=== PATIENT | female | born 1955 | race Caucasian/White ===

== ENCOUNTER 2017-10-15 11:14 | Emergency (ER) | payer OTHER ==
[2017-10-15 11:32] VITALS: BP 156/117
== END 2017-10-15 12:04 ==
LOC: ED 11:45
DX: R11.2 Nausea with vomiting, unspecified (principal); R19.7 Diarrhea, unspecified; R10.13 Epigastric pain; Z90.710 Acquired absence of both cervix and uterus
CPT/HCPCS: 99281

== ENCOUNTER 2018-02-21 12:58 | Emergency (ER) | payer OTHER ==
[~2018-02-21] VITALS: Ht 177.8 cm; Wt 72.0 kg
[2018-02-21] MEDS ORDERED: LORazepam 2 MG/ML, 1ML ONE (13:50)
[2018-02-21] MEDS ORDERED: LORazepam 2 MG/ML, 1ML IVPush ONE (14:00)
[2018-02-21] MEDS ORDERED: SODIUM CHLORIDE 0.9% 1,000ML IVBOLUS ONE (14:00)
[2018-02-21 14:13] LABS: BASOPHILS # (AUTO) 0.05 x10^3/uL (0-0.1); BASOPHILS % (AUTO) 0 % (0-1); EOSINOPHILS # (AUTO) 0.18 x10^3/uL (0-0.4); EOSINOPHILS % (AUTO) 2 % (1-7); LYMPHOCYTES # (AUTO) 2.29 x10^3/uL (1-3.4); LYMPHOCYTES % (AUTO) 20 % (22-44); MD NO; MEAN CORPUSCULAR HEMOGLOBIN 29.3 pg (27.0-34.8); MEAN CORPUSCULAR HGB CONC 32.7 g/dL (32.4-35.8); MEAN CORPUSCULAR VOLUME 89.7 fL (80-100); MEAN PLATELET VOLUME 8.5 fL (7.4-10.4); MONOCYTES # (AUTO) 0.63 x10^3/uL (0.2-0.8); MONOCYTES % (AUTO) 6 % (2-9); NEUTROPHILS # (AUTO) 8.25 x10^3/uL (1.8-6.8); NEUTROPHILS % (AUTO) 72 % (42-75); PLATELET COUNT 369 x10^3/uL (130-400); RED BLOOD COUNT 5.79 x10^6/uL (3.82-5.3); RED CELL DISTRIBUTION WIDTH 14.7 % (9.6-15.2)
[2018-02-21 14:21] LABS: ALANINE AMINOTRANSFERASE 32 U/L (12-78); ALBUMIN 4.4 g/dL (3.4-5.0); ANION GAP 11 mmol/L (5-15); CALCIUM 10.2 mg/dL (8.5-10.1); CHLORIDE 110 mmol/L (98-107); CREATININE 0.99 mg/dL (0.55-1.02)
[2018-02-21 14:22] LABS: ALKALINE PHOSPHATASE 143 U/L (45-117); BILIRUBIN,TOTAL 1.2 mg/dL (0.2-1.0); TOTAL PROTEIN 8.3 g/dL (6.4-8.2)
[2018-02-21 14:56] LABS: MICROSCOPIC INDICATED
[2018-02-21 15:09] LABS: CULTURE INDICATED? YES
[2018-02-21] MEDS ORDERED: FOSFOMYCIN 3 GM PACKET PO ONE (16:00)
[2018-02-21 16:39] VITALS: BP 112/84
== END 2018-02-21 16:41 | disposition home or self-care (01) ==
LOC: ED 16:35
DX: R10.13 Epigastric pain (principal); N30.00 Acute cystitis without hematuria; J45.909 Unspecified asthma, uncomplicated; R11.2 Nausea with vomiting, unspecified
CPT/HCPCS: 36415; 80053; 81001; 83690; 85025; 87086; 96361; 96374; 99285; J2060; J7030

== ENCOUNTER 2018-03-17 16:35 | Emergency (ER) | payer OTHER ==
[~2018-03-17] VITALS: Ht 177.8 cm; Wt 73.0 kg
[2018-03-17] MEDS ORDERED: LORazepam 1MG TABLET PO ONE (17:30)
[2018-03-17 17:41] LABS: BASOPHILS # (AUTO) 0.04 x10^3/uL (0-0.1); BASOPHILS % (AUTO) 0 % (0-1); EOSINOPHILS # (AUTO) 0.02 x10^3/uL (0-0.4); EOSINOPHILS % (AUTO) 0 % (1-7); LYMPHOCYTES # (AUTO) 1.61 x10^3/uL (1-3.4); LYMPHOCYTES % (AUTO) 9 % (22-44); MD NO; MEAN CORPUSCULAR HEMOGLOBIN 29.3 pg (27.0-34.8); MEAN CORPUSCULAR HGB CONC 32.7 g/dL (32.4-35.8); MEAN CORPUSCULAR VOLUME 89.6 fL (80-100); MEAN PLATELET VOLUME 8.8 fL (7.4-10.4); MONOCYTES # (AUTO) 0.71 x10^3/uL (0.2-0.8); MONOCYTES % (AUTO) 4 % (2-9); NEUTROPHILS # (AUTO) 14.66 x10^3/uL (1.8-6.8); NEUTROPHILS % (AUTO) 86 % (42-75); PLATELET COUNT 388 x10^3/uL (130-400); RED CELL DISTRIBUTION WIDTH 13.9 % (9.6-15.2)
[2018-03-17 17:45] LABS: ALANINE AMINOTRANSFERASE 24 U/L (12-78); ALBUMIN 4.2 g/dL (3.4-5.0); ANION GAP 8 mmol/L (5-15); CALCIUM 9.5 mg/dL (8.5-10.1); CHLORIDE 111 mmol/L (98-107); CREATININE 0.88 mg/dL (0.55-1.02)
[2018-03-17] MEDS ORDERED: LORazepam 1MG TABLET ONE (17:47)
[2018-03-17 17:48] LABS: ALKALINE PHOSPHATASE 116 U/L (45-117); BILIRUBIN,TOTAL 0.5 mg/dL (0.2-1.0); TOTAL PROTEIN 7.8 g/dL (6.4-8.2)
[2018-03-17] MEDS ORDERED: DIAZEPAM 5 MG TABLET ONE (17:54)
[2018-03-17] MEDS ORDERED: DIAZEPAM 5 MG TABLET PO ONE (18:00)
[2018-03-17 18:03] LABS: TROPONIN I < 0.015 ng/mL (0.000-0.045)
[2018-03-17 18:12] LABS: MICROSCOPIC AUTO
[2018-03-17 18:16] LABS: CULTURE INDICATED? YES
[2018-03-17 18:21] VITALS: BP 143/88
== END 2018-03-17 18:25 | disposition left against medical advice (07) ==
LOC: ED 17:05
DX: N30.90 Cystitis, unspecified without hematuria (principal); J45.909 Unspecified asthma, uncomplicated
CPT/HCPCS: 36415; 71046; 80053; 81001; 84484; 85025; 87086; 93005; 99285

== ENCOUNTER 2018-03-19 10:58 | Emergency (ER) | payer OTHER ==
[~2018-03-19] VITALS: Ht 177.8 cm; Wt 73.6 kg
[2018-03-19] MEDS ORDERED: ONDANSETRON ODT 4 MG ONE ×2 (11:23→12:04)
[2018-03-19] MEDS ORDERED: ONDANSETRON ODT 4 MG PO ONE (11:30)
[2018-03-19 11:39] LABS: BASOPHILS # (AUTO) 0.06 x10^3/uL (0-0.1); BASOPHILS % (AUTO) 0 % (0-1); EOSINOPHILS # (AUTO) 0.02 x10^3/uL (0-0.4); EOSINOPHILS % (AUTO) 0 % (1-7); LYMPHOCYTES # (AUTO) 1.88 x10^3/uL (1-3.4); LYMPHOCYTES % (AUTO) 12 % (22-44); MD NO; MEAN CORPUSCULAR HEMOGLOBIN 28.9 pg (27.0-34.8); MEAN CORPUSCULAR HGB CONC 32.6 g/dL (32.4-35.8); MEAN CORPUSCULAR VOLUME 88.6 fL (80-100); MEAN PLATELET VOLUME 8.4 fL (7.4-10.4); MONOCYTES # (AUTO) 0.83 x10^3/uL (0.2-0.8); MONOCYTES % (AUTO) 5 % (2-9); NEUTROPHILS # (AUTO) 12.74 x10^3/uL (1.8-6.8); NEUTROPHILS % (AUTO) 82 % (42-75); PLATELET COUNT 480 x10^3/uL (130-400); RED BLOOD COUNT 6.26 x10^6/uL (3.82-5.3); RED CELL DISTRIBUTION WIDTH 13.6 % (9.6-15.2)
[2018-03-19 11:48] LABS: ALBUMIN 4.5 g/dL (3.4-5.0); ANION GAP 8 mmol/L (5-15); CALCIUM 10.1 mg/dL (8.5-10.1); CHLORIDE 108 mmol/L (98-107); CREATININE 1.05 mg/dL (0.55-1.02)
[2018-03-19] MEDS ORDERED: OXYcodone/APAP 5/325MG TABLET PO ONE (12:00)
[2018-03-19] MEDS ORDERED: PHENAZOPYRIDINE 200 MG TABLET PO ONE (12:00)
[2018-03-19] MEDS ORDERED: PHENAZOPYRIDINE 200 MG TABLET ONE (12:01)
[2018-03-19] MEDS ORDERED: OXYcodone/APAP 5/325MG TABLET ONE (12:01)
[2018-03-19 12:10] LABS: CULTURE INDICATED? YES; MICROSCOPIC INDICATED
[2018-03-19 13:00] VITALS: BP 136/81
== END 2018-03-19 13:02 | disposition home or self-care (01) ==
LOC: ED 11:14
DX: N30.00 Acute cystitis without hematuria (principal); E86.0 Dehydration; D72.829 Elevated white blood cell count, unspecified; J45.909 Unspecified asthma, uncomplicated; I10 Essential (primary) hypertension; F17.200 Nicotine dependence, unspecified, uncomplicated
CPT/HCPCS: 36415; 80048; 81001; 82040; 85025; 87086; 99284; Q0162

== ENCOUNTER 2018-03-20 16:13 | Emergency (ER) | payer OTHER ==
[~2018-03-20] VITALS: Ht 177.8 cm; Wt 72.5 kg
[2018-03-20 16:16] VITALS: BP 138/91
[2018-03-20 16:47] LABS: MICROSCOPIC INDICATED
[2018-03-20] MEDS ORDERED: KETOROLAC 30 MG/1 ML IVPush ONE (17:30)
[2018-03-20] MEDS ORDERED: SODIUM CHLORIDE FLUSH 10ML SYR IVF ONE (17:30)
[2018-03-20] MEDS ORDERED: SODIUM CHLORIDE 0.9% 1,000ML IV ONE (17:30)
[2018-03-20] MEDS ORDERED: ONDANSETRON 2MG/ML, 2ML ONE (17:36)
[2018-03-20] MEDS ORDERED: KETOROLAC 30 MG/1 ML ONE (17:36)
[2018-03-20] MEDS ORDERED: ONDANSETRON 2MG/ML, 2ML IVPush ONE (18:00)
[2018-03-20] MEDS ORDERED: CEFTRIAXONE PMX 1GM/50ML 50 ML IV ONE (18:00)
[2018-03-20] MEDS ORDERED: LORazepam 1MG TABLET PO ONE (18:30)
[2018-03-20 18:32] LABS: BASOPHILS # (AUTO) 0.04 x10^3/uL (0-0.1); BASOPHILS % (AUTO) 0 % (0-1); EOSINOPHILS # (AUTO) 0.01 x10^3/uL (0-0.4); EOSINOPHILS % (AUTO) 0 % (1-7); LYMPHOCYTES # (AUTO) 1.28 x10^3/uL (1-3.4); LYMPHOCYTES % (AUTO) 8 % (22-44); MD NO; MEAN CORPUSCULAR HEMOGLOBIN 28.9 pg (27.0-34.8); MEAN CORPUSCULAR VOLUME 87.6 fL (80-100); MEAN PLATELET VOLUME 8.4 fL (7.4-10.4); MONOCYTES # (AUTO) 0.99 x10^3/uL (0.2-0.8); MONOCYTES % (AUTO) 7 % (2-9); NEUTROPHILS # (AUTO) 12.97 x10^3/uL (1.8-6.8); NEUTROPHILS % (AUTO) 85 % (42-75); PLATELET COUNT 481 x10^3/uL (130-400); RED BLOOD COUNT 6.12 x10^6/uL (3.82-5.3); RED CELL DISTRIBUTION WIDTH 13.6 % (9.6-15.2)
[2018-03-20] MEDS ORDERED: LORazepam 1MG TABLET ONE (18:38)
[2018-03-20 18:41] LABS: ALBUMIN 4.5 g/dL (3.4-5.0); ANION GAP 11 mmol/L (5-15); CHLORIDE 109 mmol/L (98-107)
[2018-03-20 18:44] LABS: ALANINE AMINOTRANSFERASE 26 U/L (12-78); ALKALINE PHOSPHATASE 118 U/L (45-117); BILIRUBIN,TOTAL 0.8 mg/dL (0.2-1.0); CREATININE 1.01 mg/dL (0.55-1.02); TOTAL PROTEIN 8.3 g/dL (6.4-8.2)
== END 2018-03-20 19:30 | disposition left against medical advice (07) ==
LOC: ED 18:48
DX: N39.0 Urinary tract infection, site not specified (principal); Z88.6 Allergy status to analgesic agent; J45.909 Unspecified asthma, uncomplicated; I10 Essential (primary) hypertension
CPT/HCPCS: 36415; 71045; 80053; 81001; 85025; 99285

== ENCOUNTER 2019-04-25 20:45 | Inpatient (IN) | payer MEDICARE, OTHER ==
[~2019-04-25] VITALS: Ht 177.8 cm; Wt 83.0 kg
--- NOTE | 2019-04-25 21:25 | NUR ---
PIV ESTB C B/C X1 DRAWN. PHLEB AT BS FOR B/C #2.
[2019-04-25] MEDS ORDERED: ONDANSETRON 2MG/ML, 2ML IVPush ONE (21:30)
[2019-04-25] MEDS ORDERED: HYDROmorphone 1 MG/ML, 1ML INJ IV ONE (21:30)
[2019-04-25] MEDS ORDERED: HYDROmorphone 1 MG/ML, 1ML VIAL ONE (21:37)
[2019-04-25] MEDS ORDERED: ONDANSETRON 2MG/ML, 2ML ONE (21:38)
[2019-04-25 21:46] LABS: MEAN CORPUSCULAR HEMOGLOBIN 28.6 pg (27.0-34.8); MEAN CORPUSCULAR VOLUME 89.4 fL (80-100); MEAN PLATELET VOLUME 8.4 fL (7.4-10.4); PLATELET COUNT 483 x10^3/uL (130-400); RED BLOOD COUNT 5.94 x10^6/uL (3.82-5.3); RED CELL DISTRIBUTION WIDTH 15.6 % (9.6-15.2)
--- NOTE | 2019-04-25 21:53 | NUR ---
PT AMBULATOYR TO RESTROOM, UNSUCCESSFUL ATTEMPT AT CLEAN CATCH. MEDS PER JUL. PT TO CT VIA CART.
[2019-04-25 21:56] LABS: SALICYLATE LEVEL 5.7 mg/dL (2.8-20.0)
[2019-04-25 22:05] LABS: MD YES
[2019-04-25 22:08] LABS: <PLATELET ESTIMATE> INCREASED; <PLT MORPHOLOGY> NORMAL PLT MORPH; ANISOCYTOSIS 1+; BASOS#(MANUAL) 0.18 x10^3/uL (0-0.1); BASOS% (MANUAL) 1 % (0-1); LYMPHS% (MANUAL) 13 % (22-44); MONOS#(MANUAL) 0.53 x10^3/uL (0.3-2.7); MONOS% (MANUAL) 3 % (2-9); SEG#(MANUAL) 14.69 x10^3/uL (1.8-6.8); SEGS% (MANUAL) 83 % (42-75)
[2019-04-25 22:24] LABS: ALANINE AMINOTRANSFERASE 53 U/L (12-78); ALBUMIN 4.4 g/dL (3.4-5.0); ANION GAP 8 mmol/L (5-15); CALCIUM 10.3 mg/dL (8.5-10.1); CHLORIDE 105 mmol/L (98-107)
[2019-04-25 22:27] LABS: ALKALINE PHOSPHATASE 149 U/L (45-117); BILIRUBIN,TOTAL 0.9 mg/dL (0.2-1.0); TOTAL PROTEIN 8.9 g/dL (6.4-8.2)
--- NOTE | 2019-04-25 22:45 | NUR ---
PT STATES SHE HAS AN ALLERGY TO CONTRAST, WHEN SEEN AT [place] THIS AM SHE REFUSED THE SCAN TO R/O KIDNEY STONES. MD AWARE. D/C CTA & PLAN FOR ADMISSION C MRI. PT/ FAMILY UPDATED. PT TEARFUL, STATES SHE DOES NOT WANT TO STAY, AFTER SPEAKING AT GREAT LENGTHS C PT, SHE AGREES TO ADMISSION.
--- NOTE | 2019-04-25 23:00 | NUR ---
TP RN: pt to be admitted, has non-contacted insurance. Transfer request faxed to [facility] at this time.
--- NOTE | 2019-04-25 23:12 | NUR ---
PT STRAIGHT CATH FOR URINE, SMALL SAMPLE OBTAINED, WALKED TO LAB.
[2019-04-25 23:31] LABS: MICROSCOPIC INDICATED
[2019-04-25 23:35] LABS: CULTURE INDICATED? YES
[2019-04-25 23:36] LABS: AMPHETAMINE SCREEN, URINE Negative (Negative); BARBITURATE SCREEN, URINE Negative (Negative); BENZODIAZEPINE SCREEN, URINE Positive (Negative); CANNABINOID SCREEN, URINE Positive (Negative); COCAINE SCREEN, URINE Negative (Negative); METHADONE SCREEN, URINE Negative (Negative); OPIATE SCREEN, URINE Positive (Negative)
--- NOTE | 2019-04-26 | NUR ---
TOMMIE RN: [facility] has not contacted us to transfer pt
[2019-04-26] MEDS ORDERED: LORazepam 2 MG/ML, 1ML ONE (00:13)
[2019-04-26] MEDS ORDERED: LORazepam 2 MG/ML, 1ML IVPush ONE (00:30)
[2019-04-26] MEDS ORDERED: LIDOCAINE-MPF 1%, 5ML ONE (00:39)
--- NOTE | 2019-04-26 00:42 | NUR ---
LIDO PULLED AND GIVEN TO PA. PA AWARE LP IS SET UP AND READY.
--- NOTE | 2019-04-26 01:19 | NUR ---
LP COMPLETED AT THIS TIME. PT EDUCATED ON LAYING FLAT FOR ONE HOUR. PT MINIMALLY COMPLIANT. FRIEND AT BEDSIDE ASSISTING.
[2019-04-26 01:56] LABS: GLUCOSE, CSF 84 mg/dL (40-80); TOTAL PROTEIN,CSF 54 mg/dL (15-45)
--- NOTE | 2019-04-26 02:11 | NUR ---
ADMITTING MD AT .
[2019-04-26] MEDS: SODIUM CHLORIDE 0.9% 1,000 ML IV SCH ×6 (02:18→22:39)
[2019-04-26] MEDS ORDERED: hydrALAzine 20 MG/ML, 1ML IVPush PRN (02:30)
[2019-04-26] MEDS ORDERED: ONDANSETRON ODT 4 MG PO PRN (02:30)
[2019-04-26] MEDS ORDERED: ACETAMINOPHEN 325 MG TABLET PO PRN (02:30)
[2019-04-26] MEDS ORDERED: morphine SULFATE 10 MG/ML, 1ML IVPush PRN (02:30)
[2019-04-26] MEDS ORDERED: BISACODYL 10 MG SUPP PR PRN (02:30)
[2019-04-26] MEDS ORDERED: DOCUSATE 100 MG CAPSULE PO PRN (02:30)
[2019-04-26] MEDS ORDERED: OXYcodone IR 5MG TABLET PO PRN (02:30)
[2019-04-26] MEDS ORDERED: POLYETHYLENE GLYCOL 17 GM PACKET PO PRN (02:30)
[2019-04-26] MEDS ORDERED: GABA400C PO ×2 (02:50→02:53)
[2019-04-26] MEDS ORDERED: ESCI20TA PO (02:50)
[2019-04-26] MEDS ORDERED: BUSP15TA PO (02:50)
[2019-04-26] MEDS ORDERED: CETI10CA PO (02:50)
[2019-04-26] MEDS ORDERED: FLUT1BLS13 INH (02:50)
[2019-04-26] MEDS ORDERED: APIX2.5T PO (02:50)
[2019-04-26] MEDS ORDERED: CHOL500045 PO (02:50)
[2019-04-26] MEDS ORDERED: ESTR1TAB15 PO (02:50)
[2019-04-26] MEDS ORDERED: GABA800T5 PO (02:52)
[2019-04-26 02:57] LABS: HEMOGLOBIN A1C 5.3 % (4.2-6.3)
[2019-04-26 02:59] LABS: FREE T4 (FREE THYROXINE) 1.05 ng/dL (0.76-1.46)
[2019-04-26] MEDS ORDERED: RANI150T4 PO (03:05)
[2019-04-26] MEDS ORDERED: METR-90 PO (03:05)
[2019-04-26] MEDS ORDERED: LEVO100T5 PO (03:05)
[2019-04-26] MEDS ORDERED: VALA1000 PO (03:05)
[2019-04-26] MEDS ORDERED: LITH600C PO (03:05)
[2019-04-26] MEDS ORDERED: LINA145C PO (03:05)
[2019-04-26] MEDS ORDERED: PENT100C2 PO (03:05)
[2019-04-26] MEDS ORDERED: LIOT5TAB11 PO (03:05)
[2019-04-26] MEDS ORDERED: MELA3TAB15 PO (03:05)
[2019-04-26] MEDS ORDERED: GUAI600T31 PO (03:05)
[2019-04-26] MEDS ORDERED: LITH300C PO (03:05)
[2019-04-26] MEDS ORDERED: MONT10TA9 PO (03:05)
[2019-04-26 03:30] VITALS: BP 135/95
[2019-04-26] MEDS ORDERED: AZITHROMYCIN 500 MG in SODIUM CHLORIDE 0.9% 250 ML IV ONE (04:00)
[2019-04-26] MEDS ORDERED: CEFTRIAXONE PMX 2GM/50ML 50 ML IV SCH (04:00)
[2019-04-26 04:07] LABS: MEAN CORPUSCULAR HEMOGLOBIN 28.2 pg (27.0-34.8); MEAN CORPUSCULAR VOLUME 88.1 fL (80-100); MEAN PLATELET VOLUME 8.1 fL (7.4-10.4); PLATELET COUNT 527 x10^3/uL (130-400); RED BLOOD COUNT 5.84 x10^6/uL (3.82-5.3); RED CELL DISTRIBUTION WIDTH 15.3 % (9.6-15.2)
[2019-04-26 04:23] LABS: ALANINE AMINOTRANSFERASE 53 U/L (12-78); ALBUMIN 4.2 g/dL (3.4-5.0); ALKALINE PHOSPHATASE 146 U/L (45-117); ANION GAP 7 mmol/L (5-15); BILIRUBIN,TOTAL 0.9 mg/dL (0.2-1.0); CALCIUM 9.8 mg/dL (8.5-10.1); CHLORIDE 108 mmol/L (98-107); CHOL/HDL RATIO 5.6; CHOLESTEROL, TOTAL 231 mg/dL (140-239); HDL CHOL % 18 % (28-40); HDL CHOLESTEROL (DIRECT) 41 mg/dL (40-60); LDL CHOLESTEROL,CALCULATED 153 mg/dL (54-169); LDL/HDL RATIO 3.7 (0.5-3.0); TOTAL PROTEIN 8.6 g/dL (6.4-8.2); TRIGLYCERIDES 187 mg/dL (50-200); VLDL CHOLESTEROL 37 mg/dL (0-25)
[2019-04-26 04:36] LABS: BASOPHILS # (AUTO) 0.09 x10^3/uL (0-0.1); BASOPHILS % (AUTO) 1 % (0-1); EOSINOPHILS # (AUTO) 0.11 x10^3/uL (0-0.4); EOSINOPHILS % (AUTO) 1 % (1-7); LYMPHOCYTES # (AUTO) 2.57 x10^3/uL (1-3.4); LYMPHOCYTES % (AUTO) 14 % (22-44); MD SCAN; MONOCYTES # (AUTO) 1.17 x10^3/uL (0.2-0.8); MONOCYTES % (AUTO) 6 % (2-9); NEUTROPHILS # (AUTO) 15.03 x10^3/uL (1.8-6.8); NEUTROPHILS % (AUTO) 79 % (42-75)
[2019-04-26] MEDS ORDERED: ALBUTEROL SULFATE 2.5 MG/3 ML NPPB SCH (06:00)
[2019-04-26] MEDS: BUDESONIDE 0.5 MG/2 ML INHA INH SCH ×2 (07:20→21:00)
[2019-04-26] MEDS ORDERED: LEVOTHYROXINE 100 MCG TABLET PO SCH (07:30)
[2019-04-26] MEDS ORDERED: HALOPERIDOL 5 MG/ML IM PRN (08:30)
[2019-04-26] MEDS: BUSPIRONE 5 MG TABLET PO SCH ×3 (08:40→20:47)
[2019-04-26] MEDS: APIXABAN 2.5 MG TABLET PO SCH ×2 (08:41→20:47)
[2019-04-26] MEDS: GABAPENTIN 400 MG CAPSULE PO SCH ×2 (08:41→20:48)
[2019-04-26] MEDS: LITHIUM CARBONATE 300 MG CAPSULE PO SCH ×2 (08:41→20:48)
[2019-04-26] MEDS: ESCITALOPRAM 10MG TABLET PO SCH (08:41)
[2019-04-26] MEDS: CHOLECALCIFEROL 5,000u TAB PO SCH (08:42)
[2019-04-26] MEDS: VALACYCLOVIR 500MG TABLET PO SCH ×3 (08:50→20:49)
[2019-04-26] MEDS: LIOTHYRONINE 5 MCG TABLET PO SCH ×2 (08:54→20:48)
[2019-04-26] MEDS ORDERED: [UNRECOGNIZED DRUG - OTHER] INH SCH (09:00)
[2019-04-26] MEDS ORDERED: FLUTICASONE PROPION INH SCH (09:00)
[2019-04-26] MEDS: TEMPLATE NON-FORMULARY MED. (Linaclotide** (Linzess**) 145 MCG) PO SCH ×2 (09:00→20:49)
[2019-04-26] MEDS: TEMPLATE NON-FORMULARY MED. (Pentosan Polysulfate Sodium (Elmiron) 100 MG) PO SCH ×3 (09:00→20:49)
[2019-04-26] MEDS ORDERED: CETIRIZINE 10 MG TABLET PO SCH (09:00)
[2019-04-26] MEDS ORDERED: FAMOTIDINE 20 MG TABLET PO SCH (09:00)
[2019-04-26] MEDS ORDERED: SALMETEROL INH SCH (09:00)
[2019-04-26] MEDS: PIPERACILLIN/TAZO/PMX 4.5GM 100 ML IV SCH ×3 (09:42→20:47)
[2019-04-26] MEDS ORDERED: GABAPENTIN 400 MG CAPSULE PO SCH (11:30)
[2019-04-26 12:04] VITALS: BP 144/84
[2019-04-26 12:30] VITALS: BP 148/86
[2019-04-26] MEDS ORDERED: ENOXAPARIN 40 MG/0.4 ML SQ SCH (13:00)
[2019-04-26 14:59] LABS: CULTURE INDICATED? YES; MICROSCOPIC INDICATED
[2019-04-26] MEDS: LINEZOLID PMX 600MG/300ML 300 ML IV SCH (17:14)
[2019-04-26 19:56] VITALS: BP 125/81
[2019-04-26] MEDS: MELATONIN 3 MG TABLET PO SCH (20:47)
[2019-04-26] MEDS: MONTELUKAST 10 MG TABLET PO SCH (20:48)
[2019-04-26] MEDS: FAMOTIDINE 20 MG TABLET PO SCH (20:49)
[2019-04-26] MEDS ORDERED: TEMPLATE NON-FORMULARY MED. (Ranitidine Hcl** 150 MG) PO SCH (21:00)
[2019-04-26] MEDS: ONDANSETRON 2MG/ML, 2ML IVPush PRN (21:17)
[2019-04-27 00:40] VITALS: BP 145/81
[2019-04-27] MEDS: PIPERACILLIN/TAZO/PMX 4.5GM 100 ML IV SCH ×4 (02:26→22:32)
[2019-04-27] MEDS: LINEZOLID PMX 600MG/300ML 300 ML IV SCH (04:49)
[2019-04-27] MEDS: SODIUM CHLORIDE 0.9% 1,000 ML IV SCH (04:49)
[2019-04-27] MEDS: ALBUTEROL SULFATE 2.5 MG/3 ML NPPB PRN ×2 (05:22→11:09)
[2019-04-27 05:23] LABS: ANION GAP 4 mmol/L (5-15); CALCIUM 8.1 mg/dL (8.5-10.1); CHLORIDE 114 mmol/L (98-107)
[2019-04-27 05:26] LABS: ALANINE AMINOTRANSFERASE 36 U/L (12-78); ALKALINE PHOSPHATASE 93 U/L (45-117); BILIRUBIN,TOTAL 1.3 mg/dL (0.2-1.0); CREATININE 0.99 mg/dL (0.55-1.02); TOTAL PROTEIN 5.9 g/dL (6.4-8.2)
[2019-04-27 05:30] LABS: BASOPHILS # (AUTO) 0.09 x10^3/uL (0-0.1); BASOPHILS % (AUTO) 1 % (0-1); EOSINOPHILS # (AUTO) 0.42 x10^3/uL (0-0.4); EOSINOPHILS % (AUTO) 4 % (1-7); LYMPHOCYTES # (AUTO) 2.05 x10^3/uL (1-3.4); LYMPHOCYTES % (AUTO) 19 % (22-44); MD NO; MEAN CORPUSCULAR HEMOGLOBIN 28.7 pg (27.0-34.8); MEAN CORPUSCULAR HGB CONC 31.7 g/dL (32.4-35.8); MEAN CORPUSCULAR VOLUME 90.5 fL (80-100); MONOCYTES % (AUTO) 7 % (2-9); NEUTROPHILS # (AUTO) 7.73 x10^3/uL (1.8-6.8); NEUTROPHILS % (AUTO) 70 % (42-75); PLATELET COUNT 334 x10^3/uL (130-400); RED BLOOD COUNT 4.44 x10^6/uL (3.82-5.3); RED CELL DISTRIBUTION WIDTH 15.8 % (9.6-15.2)
[2019-04-27 06:59] VITALS: BP 142/87
[2019-04-27] MEDS ORDERED: LEVOTHYROXINE 100 MCG TABLET PO SCH (07:30)
[2019-04-27] MEDS: ESCITALOPRAM 10MG TABLET PO SCH (08:25)
[2019-04-27] MEDS: LITHIUM CARBONATE 300 MG CAPSULE PO SCH ×2 (08:26→20:46)
[2019-04-27] MEDS: APIXABAN 2.5 MG TABLET PO SCH ×2 (08:26→20:46)
[2019-04-27] MEDS: VALACYCLOVIR 500MG TABLET PO SCH ×3 (08:26→20:49)
[2019-04-27] MEDS: GABAPENTIN 400 MG CAPSULE PO SCH ×2 (08:26→20:47)
[2019-04-27] MEDS: LIOTHYRONINE 5 MCG TABLET PO SCH ×2 (08:26→20:46)
[2019-04-27] MEDS: FAMOTIDINE 20 MG TABLET PO SCH ×2 (08:26→20:48)
[2019-04-27] MEDS: BUSPIRONE 5 MG TABLET PO SCH ×3 (08:27→20:46)
[2019-04-27] MEDS: TEMPLATE NON-FORMULARY MED. (Linaclotide** (Linzess**) 145 MCG) PO SCH ×2 (09:00→20:43)
[2019-04-27] MEDS: BUDESONIDE 0.5 MG/2 ML INHA INH SCH ×2 (09:00→19:48)
[2019-04-27] MEDS: CHOLECALCIFEROL 5,000u TAB PO SCH (09:00)
[2019-04-27] MEDS: TEMPLATE NON-FORMULARY MED. (Pentosan Polysulfate Sodium (Elmiron) 100 MG) PO SCH ×3 (09:00→20:43)
[2019-04-27] MEDS: PHENAZOPYRIDINE 100 MG TABLET PO PRN ×2 (10:14→15:49)
[2019-04-27] MEDS ORDERED: LORA-446 PO (13:20)
[2019-04-27 13:59] VITALS: BP 159/101
[2019-04-27] MEDS: LORazepam 1MG TABLET PO PRN (14:31)
[2019-04-27] MEDS: ALBUTEROL SULFATE 2.5 MG/3 ML NPPB SCH ×2 (15:00→19:48)
[2019-04-27] MEDS: POTASSIUM CHLORIDE 20 MEQ TAB.ER.PRT PO SCH (15:49)
[2019-04-27 19:16] VITALS: BP 157/94
[2019-04-27] MEDS: MELATONIN 3 MG TABLET PO SCH (20:47)
[2019-04-27] MEDS: MONTELUKAST 10 MG TABLET PO SCH (20:48)
[2019-04-27] MEDS: ONDANSETRON ODT 4 MG PO PRN (20:57)
[2019-04-28 01:35] VITALS: BP 132/80
[2019-04-28] MEDS: ALBUTEROL SULFATE 2.5 MG/3 ML NPPB SCH ×4 (03:00→19:32)
[2019-04-28] MEDS: SODIUM CHLORIDE 0.9% 1,000 ML IV SCH ×2 (03:28→20:28)
[2019-04-28] MEDS: PIPERACILLIN/TAZO/PMX 4.5GM 100 ML IV SCH (03:30)
[2019-04-28] MEDS: ONDANSETRON ODT 4 MG PO PRN ×2 (05:35→22:08)
[2019-04-28] MEDS: LEVOTHYROXINE 137 MCG TABLET PO SCH (05:35)
[2019-04-28 05:38] LABS: BASOPHILS % (AUTO) 1 % (0-1); EOSINOPHILS # (AUTO) 0.55 x10^3/uL (0-0.4); EOSINOPHILS % (AUTO) 6 % (1-7); LYMPHOCYTES # (AUTO) 2.44 x10^3/uL (1-3.4); LYMPHOCYTES % (AUTO) 26 % (22-44); MD NO; MEAN CORPUSCULAR HEMOGLOBIN 28.8 pg (27.0-34.8); MEAN CORPUSCULAR HGB CONC 31.8 g/dL (32.4-35.8); MEAN CORPUSCULAR VOLUME 90.4 fL (80-100); MEAN PLATELET VOLUME 7.8 fL (7.4-10.4); MONOCYTES # (AUTO) 0.82 x10^3/uL (0.2-0.8); MONOCYTES % (AUTO) 9 % (2-9); NEUTROPHILS # (AUTO) 5.38 x10^3/uL (1.8-6.8); NEUTROPHILS % (AUTO) 58 % (42-75); PLATELET COUNT 370 x10^3/uL (130-400); RED BLOOD COUNT 4.74 x10^6/uL (3.82-5.3); RED CELL DISTRIBUTION WIDTH 15.9 % (9.6-15.2)
[2019-04-28 05:50] LABS: CHLORIDE 114 mmol/L (98-107)
[2019-04-28 05:59] LABS: ALANINE AMINOTRANSFERASE 40 U/L (12-78); ALBUMIN 3.4 g/dL (3.4-5.0); ALKALINE PHOSPHATASE 98 U/L (45-117); ANION GAP 3 mmol/L (5-15); BILIRUBIN,TOTAL 1.1 mg/dL (0.2-1.0); CALCIUM 8.8 mg/dL (8.5-10.1); CREATININE 0.94 mg/dL (0.55-1.02)
[2019-04-28 06:44] VITALS: BP 168/98
[2019-04-28] MEDS: BUDESONIDE 0.5 MG/2 ML INHA INH SCH ×2 (07:00→19:32)
[2019-04-28] MEDS: TEMPLATE NON-FORMULARY MED. (Linaclotide** (Linzess**) 145 MCG) PO SCH ×2 (08:01→21:00)
[2019-04-28] MEDS: TEMPLATE NON-FORMULARY MED. (Pentosan Polysulfate Sodium (Elmiron) 100 MG) PO SCH ×3 (08:01→21:00)
[2019-04-28] MEDS: POTASSIUM CHLORIDE 20 MEQ TAB.ER.PRT PO SCH ×2 (08:11→09:00)
[2019-04-28] MEDS: APIXABAN 2.5 MG TABLET PO SCH ×2 (08:12→22:09)
[2019-04-28] MEDS: BUSPIRONE 5 MG TABLET PO SCH ×3 (08:12→22:10)
[2019-04-28] MEDS: LIOTHYRONINE 5 MCG TABLET PO SCH ×2 (08:13→21:00)
[2019-04-28] MEDS: PHENAZOPYRIDINE 100 MG TABLET PO PRN (08:17)
[2019-04-28] MEDS ORDERED: CEFTRIAXONE PMX 1GM/50ML 50 ML IV SCH (09:00)
[2019-04-28] MEDS: ONDANSETRON 2MG/ML, 2ML IVPush PRN ×2 (09:43→15:46)
[2019-04-28] MEDS: FAMOTIDINE 20 MG TABLET PO SCH ×2 (09:45→22:09)
[2019-04-28] MEDS: ESCITALOPRAM 10MG TABLET PO SCH (09:45)
[2019-04-28] MEDS: GABAPENTIN 400 MG CAPSULE PO SCH ×2 (09:45→22:10)
[2019-04-28] MEDS: LITHIUM CARBONATE 300 MG CAPSULE PO SCH ×2 (09:45→22:09)
[2019-04-28] MEDS: VALACYCLOVIR 500MG TABLET PO SCH ×3 (09:45→22:17)
[2019-04-28] MEDS: CHOLECALCIFEROL 5,000u TAB PO SCH (09:46)
[2019-04-28] MEDS: LORazepam 1MG TABLET PO PRN (09:56)
[2019-04-28] MEDS: OXYcodone/APAP 5/325MG TABLET PO PRN ×3 (11:10→23:26)
[2019-04-28] MEDS ORDERED: OMNIPAQUE 350 MG/ML, 100ML BOTTLE ONE (11:51)
[2019-04-28 13:32] VITALS: BP 133/77
[2019-04-28] MEDS ORDERED: PHARMACY INSTRUCTION MC PRN (14:00)
[2019-04-28] MEDS ORDERED: INSTRUCTION SEE COMMENTS XX PRN (14:00)
[2019-04-28 19:52] VITALS: BP 169/96
[2019-04-28] MEDS: MONTELUKAST 10 MG TABLET PO SCH (22:09)
[2019-04-28] MEDS: MELATONIN 3 MG TABLET PO SCH (22:10)
[2019-04-29 03:40] VITALS: BP 157/95
[2019-04-29] MEDS: LEVOTHYROXINE 137 MCG TABLET PO SCH (06:21)
[2019-04-29] MEDS: ONDANSETRON 2MG/ML, 2ML IVPush PRN ×2 (06:24→21:08)
[2019-04-29 08:04] VITALS: BP 159/92
[2019-04-29] MEDS: TEMPLATE NON-FORMULARY MED. (Linaclotide** (Linzess**) 145 MCG) PO SCH ×2 (09:00→21:00)
[2019-04-29] MEDS: TEMPLATE NON-FORMULARY MED. (Pentosan Polysulfate Sodium (Elmiron) 100 MG) PO SCH ×3 (09:00→21:00)
[2019-04-29] MEDS: BUDESONIDE 0.5 MG/2 ML INHA INH SCH ×2 (09:00→20:21)
[2019-04-29] MEDS: SODIUM CHLORIDE 0.9% 1,000 ML IV SCH ×2 (09:23→12:21)
[2019-04-29] MEDS: APIXABAN 2.5 MG TABLET PO SCH ×2 (09:24→20:59)
[2019-04-29] MEDS: PHENAZOPYRIDINE 100 MG TABLET PO PRN ×2 (09:24→17:05)
[2019-04-29] MEDS: BUSPIRONE 5 MG TABLET PO SCH ×3 (09:24→21:01)
[2019-04-29] MEDS: VALACYCLOVIR 500MG TABLET PO SCH ×3 (09:24→20:59)
[2019-04-29] MEDS: LIOTHYRONINE 5 MCG TABLET PO SCH ×2 (09:24→21:01)
[2019-04-29] MEDS: LITHIUM CARBONATE 300 MG CAPSULE PO SCH ×2 (09:25→21:01)
[2019-04-29] MEDS: CHOLECALCIFEROL 5,000u TAB PO SCH (09:25)
[2019-04-29] MEDS: CEFDINIR 300 MG CAPSULE PO SCH ×2 (09:25→21:00)
[2019-04-29] MEDS: GABAPENTIN 400 MG CAPSULE PO SCH ×2 (09:25→21:02)
[2019-04-29] MEDS: POTASSIUM CHLORIDE 20 MEQ TAB.ER.PRT PO SCH (09:25)
[2019-04-29] MEDS: ESCITALOPRAM 10MG TABLET PO SCH (09:25)
[2019-04-29] MEDS: FAMOTIDINE 20 MG TABLET PO SCH ×2 (09:26→20:59)
[2019-04-29] MEDS ORDERED: DIPHENHYDRAMINE 25 MG CAPSULE PO PRN (09:30)
[2019-04-29] MEDS: OXYcodone/APAP 5/325MG TABLET PO PRN ×2 (12:23→23:22)
[2019-04-29 14:38] VITALS: BP 156/93
[2019-04-29] MEDS: ALBUTEROL SULFATE 2.5 MG/3 ML NPPB PRN (15:45)
[2019-04-29 19:33] VITALS: BP 157/90
[2019-04-29] MEDS: MONTELUKAST 10 MG TABLET PO SCH (20:59)
[2019-04-29] MEDS: MELATONIN 3 MG TABLET PO SCH (20:59)
[2019-04-30 05:51] LABS: BASOPHILS % (AUTO) 1 % (0-1); EOSINOPHILS # (AUTO) 0.57 x10^3/uL (0-0.4); EOSINOPHILS % (AUTO) 6 % (1-7); LYMPHOCYTES # (AUTO) 2.16 x10^3/uL (1-3.4); LYMPHOCYTES % (AUTO) 24 % (22-44); MD NO; MEAN CORPUSCULAR HEMOGLOBIN 28.7 pg (27.0-34.8); MEAN CORPUSCULAR HGB CONC 32.3 g/dL (32.4-35.8); MEAN CORPUSCULAR VOLUME 88.8 fL (80-100); MONOCYTES # (AUTO) 0.66 x10^3/uL (0.2-0.8); MONOCYTES % (AUTO) 7 % (2-9); NEUTROPHILS # (AUTO) 5.53 x10^3/uL (1.8-6.8); NEUTROPHILS % (AUTO) 61 % (42-75); PLATELET COUNT 372 x10^3/uL (130-400); RED BLOOD COUNT 4.63 x10^6/uL (3.82-5.3); RED CELL DISTRIBUTION WIDTH 15.4 % (9.6-15.2)
[2019-04-30 05:58] LABS: ALBUMIN 3.5 g/dL (3.4-5.0); ANION GAP 2 mmol/L (5-15); CALCIUM 9.4 mg/dL (8.5-10.1); CHLORIDE 111 mmol/L (98-107)
[2019-04-30 06:04] LABS: ALANINE AMINOTRANSFERASE 43 U/L (12-78); ALKALINE PHOSPHATASE 85 U/L (45-117); BILIRUBIN,TOTAL 0.7 mg/dL (0.2-1.0); CREATININE 0.85 mg/dL (0.55-1.02); TOTAL PROTEIN 6.9 g/dL (6.4-8.2)
[2019-04-30] MEDS: LEVOTHYROXINE 137 MCG TABLET PO SCH (06:04)
[2019-04-30 07:42] VITALS: BP 149/80
[2019-04-30] MEDS: TEMPLATE NON-FORMULARY MED. (Pentosan Polysulfate Sodium (Elmiron) 100 MG) PO SCH ×3 (09:00→20:34)
[2019-04-30] MEDS: TEMPLATE NON-FORMULARY MED. (Linaclotide** (Linzess**) 145 MCG) PO SCH ×2 (09:00→20:34)
[2019-04-30] MEDS: BUDESONIDE 0.5 MG/2 ML INHA INH SCH ×2 (09:00→19:31)
[2019-04-30] MEDS: POTASSIUM CHLORIDE 20 MEQ TAB.ER.PRT PO SCH (09:29)
[2019-04-30] MEDS: FAMOTIDINE 20 MG TABLET PO SCH ×2 (09:30→20:33)
[2019-04-30] MEDS: CHOLECALCIFEROL 5,000u TAB PO SCH (09:30)
[2019-04-30] MEDS: GABAPENTIN 400 MG CAPSULE PO SCH ×2 (09:30→20:33)
[2019-04-30] MEDS: LIOTHYRONINE 5 MCG TABLET PO SCH ×2 (09:30→23:04)
[2019-04-30] MEDS: ESCITALOPRAM 10MG TABLET PO SCH (09:31)
[2019-04-30] MEDS: APIXABAN 2.5 MG TABLET PO SCH ×2 (09:32→20:33)
[2019-04-30] MEDS: LITHIUM CARBONATE 300 MG CAPSULE PO SCH ×2 (09:32→20:33)
[2019-04-30] MEDS: VALACYCLOVIR 500MG TABLET PO SCH ×3 (09:32→20:33)
[2019-04-30] MEDS: CEFDINIR 300 MG CAPSULE PO SCH ×2 (09:32→20:33)
[2019-04-30] MEDS: BUSPIRONE 5 MG TABLET PO SCH ×3 (09:33→20:32)
[2019-04-30] MEDS ORDERED: PHENAZOPYRIDINE 200 MG TABLET ONE (09:49)
[2019-04-30] MEDS: ONDANSETRON ODT 4 MG PO PRN ×2 (09:54→18:48)
[2019-04-30] MEDS: PHENAZOPYRIDINE 100 MG TABLET PO PRN (09:55)
[2019-04-30] MEDS: SODIUM CHLORIDE 0.9% 1,000 ML IV SCH (09:57)
[2019-04-30] MEDS: OXYcodone/APAP 5/325MG TABLET PO PRN ×2 (10:57→22:44)
[2019-04-30 12:31] VITALS: BP 158/87
[2019-04-30 20:00] VITALS: BP 140/77
[2019-04-30] MEDS: MELATONIN 3 MG TABLET PO SCH (20:33)
[2019-04-30] MEDS: MONTELUKAST 10 MG TABLET PO SCH (20:48)
[2019-05-01 01:51] VITALS: BP 117/79
[2019-05-01] MEDS: LEVOTHYROXINE 137 MCG TABLET PO SCH (06:12)
[2019-05-01] MEDS: SODIUM CHLORIDE 0.9% 1,000 ML IV SCH (06:12)
[2019-05-01 07:20] VITALS: BP 138/75
[2019-05-01] MEDS: TEMPLATE NON-FORMULARY MED. (Linaclotide** (Linzess**) 145 MCG) PO SCH ×2 (07:22→20:11)
[2019-05-01] MEDS: TEMPLATE NON-FORMULARY MED. (Pentosan Polysulfate Sodium (Elmiron) 100 MG) PO SCH ×3 (07:22→20:11)
[2019-05-01] MEDS: BUDESONIDE 0.5 MG/2 ML INHA INH SCH ×2 (09:00→21:00)
[2019-05-01] MEDS: CHOLECALCIFEROL 5,000u TAB PO SCH (09:41)
[2019-05-01] MEDS: APIXABAN 2.5 MG TABLET PO SCH ×2 (09:41→20:19)
[2019-05-01] MEDS: BUSPIRONE 5 MG TABLET PO SCH ×3 (09:41→20:18)
[2019-05-01] MEDS: LIOTHYRONINE 5 MCG TABLET PO SCH ×2 (09:41→19:58)
[2019-05-01] MEDS: FAMOTIDINE 20 MG TABLET PO SCH ×2 (09:41→20:19)
[2019-05-01] MEDS: CEFDINIR 300 MG CAPSULE PO SCH ×2 (09:41→20:18)
[2019-05-01] MEDS: GABAPENTIN 400 MG CAPSULE PO SCH ×2 (09:41→20:19)
[2019-05-01] MEDS: POTASSIUM CHLORIDE 20 MEQ TAB.ER.PRT PO SCH (09:42)
[2019-05-01] MEDS: VALACYCLOVIR 500MG TABLET PO SCH ×3 (09:42→20:19)
[2019-05-01] MEDS: LITHIUM CARBONATE 300 MG CAPSULE PO SCH ×2 (09:42→20:19)
[2019-05-01] MEDS: ESCITALOPRAM 10MG TABLET PO SCH (09:42)
[2019-05-01 12:21] VITALS: BP 134/85
[2019-05-01] MEDS: ALBUTEROL SULFATE 2.5 MG/3 ML NPPB PRN (15:54)
[2019-05-01 18:31] VITALS: BP 127/82
[2019-05-01] MEDS: MELATONIN 3 MG TABLET PO SCH (20:18)
[2019-05-01] MEDS: MONTELUKAST 10 MG TABLET PO SCH (20:18)
[2019-05-01] MEDS: ONDANSETRON 2MG/ML, 2ML IVPush PRN (20:18)
[2019-05-01] MEDS: PHENAZOPYRIDINE 100 MG TABLET PO PRN (20:19)
[2019-05-01] MEDS: OXYcodone/APAP 5/325MG TABLET PO PRN (22:19)
[2019-05-02] MEDS: SODIUM CHLORIDE 0.9% 1,000 ML IV SCH
[2019-05-02 02:02] VITALS: BP 122/78
[2019-05-02] MEDS: LORazepam 1MG TABLET PO PRN (02:30)
[2019-05-02] MEDS: LEVOTHYROXINE 137 MCG TABLET PO SCH (06:11)
[2019-05-02 06:38] VITALS: BP 134/77
[2019-05-02] MEDS: BUDESONIDE 0.5 MG/2 ML INHA INH SCH (07:14)
[2019-05-02] MEDS: TEMPLATE NON-FORMULARY MED. (Linaclotide** (Linzess**) 145 MCG) PO SCH (09:00)
[2019-05-02] MEDS: TEMPLATE NON-FORMULARY MED. (Pentosan Polysulfate Sodium (Elmiron) 100 MG) PO SCH (09:00)
[2019-05-02] MEDS: BUSPIRONE 5 MG TABLET PO SCH (09:22)
[2019-05-02] MEDS: ESCITALOPRAM 10MG TABLET PO SCH (09:22)
[2019-05-02] MEDS: GABAPENTIN 400 MG CAPSULE PO SCH (09:22)
[2019-05-02] MEDS: POTASSIUM CHLORIDE 20 MEQ TAB.ER.PRT PO SCH (09:22)
[2019-05-02] MEDS: VALACYCLOVIR 500MG TABLET PO SCH (09:23)
[2019-05-02] MEDS: FAMOTIDINE 20 MG TABLET PO SCH (09:23)
[2019-05-02] MEDS: LITHIUM CARBONATE 300 MG CAPSULE PO SCH (09:23)
[2019-05-02] MEDS: CEFDINIR 300 MG CAPSULE PO SCH (09:23)
[2019-05-02] MEDS: LIOTHYRONINE 5 MCG TABLET PO SCH (09:23)
[2019-05-02] MEDS: APIXABAN 2.5 MG TABLET PO SCH (09:23)
[2019-05-02] MEDS: CHOLECALCIFEROL 5,000u TAB PO SCH (09:24)
[2019-05-02] MEDS: ONDANSETRON 2MG/ML, 2ML IVPush PRN (09:39)
[2019-05-02] MEDS: ONDANSETRON ODT 4 MG PO PRN (09:54)
[2019-05-02 13:54] VITALS: BP 162/97
[2019-05-02] MEDS ORDERED: OXYC5CAP2 PO (14:34)
[2019-05-02 15:11] VITALS: BP 142/85
== END 2019-05-02 14:45 | disposition home health service (06) | DRG 70 ==
LOC: ED 22:40 → EDIP 04-26 02:31 → 4WST 04-26 03:37 → 4EST 04-28 20:16 → DCLOUNGE 05-02 14:31
PROVIDERS: ADMIT Internal Medicine; ATTEND Internal Medicine
PROC: 009U3ZX Drainage of Spinal Canal, Percutaneous Approach, Diagnostic (ICD-10-PCS; principal; 2019-04-26)
PROC: 0T9B70Z Drainage of Bladder with Drainage Device, Via Natural or Artificial Opening (ICD-10-PCS; 2019-04-26)
DX: G93.41 Metabolic encephalopathy (principal); N17.0 Acute kidney failure with tubular necrosis; N39.0 Urinary tract infection, site not specified; E87.1 Hypo-osmolality and hyponatremia; D68.69 Other thrombophilia; Z88.8 Allergy status to other drugs, medicaments and biological substances; Z91.018 Allergy to other foods; Z91.013 Allergy to seafood; E03.9 Hypothyroidism, unspecified; E86.0 Dehydration; E87.6 Hypokalemia; F12.90 Cannabis use, unspecified, uncomplicated; F17.210 Nicotine dependence, cigarettes, uncomplicated; F29 Unspecified psychosis not due to a substance or known physiological condition; F31.9 Bipolar disorder, unspecified; F43.10 Post-traumatic stress disorder, unspecified; X58.XXXA Exposure to other specified factors, initial encounter; Y93.89 Activity, other specified; Y92.89 Other specified places as the place of occurrence of the external cause; Y99.8 Other external cause status; J45.909 Unspecified asthma, uncomplicated; Z79.01 Long term (current) use of anticoagulants; Z86.718 Personal history of other venous thrombosis and embolism
CPT/HCPCS: 36415; 70450; 70496; 70498; 70551; 71045; 80053; 80061; 80178; 80307; 81001; 82140; 82945; 83036; 83605; 83735; 84100; 84157; 84439; 84443; 85025; 87040; 87070; 87086; 87205; 87252; 89051; 93005; 94640; 96374; 96375; 99285; G0378; J0456; J0696; J1170; J2020; J2405; J2543; J7613; J7626; Q0162; Q9967; J1630; J2060; J7030; J7050; Q0163

== ENCOUNTER 2019-05-06 14:23 | Inpatient (IN) | payer MEDICARE ==
[~2019-05-06] VITALS: Ht 177.8 cm; Wt 81.0 kg
[~2019-05-06 14:23] MED LIST: APIX2.5T PO; BUSP15TA PO; CETI10CA PO; CHOL500045 PO; ESCI20TA PO; ESTR1TAB15 PO; FLUT1BLS13 INH; GABA400C PO; GABA800T5 PO; GUAI600T31 PO; LEVO100T5 PO; LINA145C PO; LIOT5TAB11 PO; LITH300C PO; LITH600C PO; LORA-446 PO; MELA3TAB15 PO; METR-90 PO; MONT10TA9 PO; OXYC5CAP2 PO; PENT100C2 PO; RANI150T4 PO; VALA1000 PO
--- NOTE | 2019-05-06 14:46 | NUR ---
PT C/O NOT FEELING WELL, BUT SHE CAN'T EXPLAIN WHAT IS HURT AND NOT FEELING WELL. SPOUSE STATES PT WAS DC FROM [facility] ON WEDNESDAY AND HAS BEEN TAKING MEDS PRESCRIBED. PT AND SPOUSE STATE THEY THINK SHE IS HAVING A REACTION FROM NARCOTICS. PT ANXIOUS AND KEEPS STATING "I DON'T KNOW WHAT TO DO". SPOUSE AT BEDSIDE REDIRECTING PT AND ATTEMPTING TO KEEP HER CALM. CONNECTED TO MONITORING. CALL LIGHT IN REACH. AWAITING ORDERS AT THIS TIME.
--- NOTE | 2019-05-06 14:50 | NUR ---
PT TAKEN TO RESTROOM IN W/C. PT HAD TO BE REMINDED TO TAKE DOWN HER SHORTS PRIOR TO SITTING ON THE TOILET. PT CONTINUES TO REPEAT "I CAN'T FEEL LIKE THIS, I DON'T KNOW WHAT TO DO". PT RETURNED TO ROOM WITH SPOUSE AT BEDSIDE. URINE WAS NOT COLLECTED AT THIS TIME.
[2019-05-06] MEDS ORDERED: ONDANSETRON 2MG/ML, 2ML ONE (15:27)
[2019-05-06] MEDS ORDERED: ONDANSETRON 2MG/ML, 2ML IVPush ONE (15:30)
--- NOTE | 2019-05-06 15:35 | NUR ---
IV START. MEDS ADMIN PER JUL. FAMILY AT BEDSIDE.
[2019-05-06 15:44] LABS: MEAN CORPUSCULAR HEMOGLOBIN 28.8 pg (27.0-34.8); MEAN CORPUSCULAR HGB CONC 31.8 g/dL (32.4-35.8); MEAN CORPUSCULAR VOLUME 90.5 fL (80-100); MEAN PLATELET VOLUME 8.5 fL (7.4-10.4); PLATELET COUNT 372 x10^3/uL (130-400); RED BLOOD COUNT 5.55 x10^6/uL (3.82-5.3); RED CELL DISTRIBUTION WIDTH 15.8 % (9.6-15.2)
[2019-05-06 15:49] LABS: ALANINE AMINOTRANSFERASE 70 U/L (12-78); ANION GAP 10 mmol/L (5-15); CALCIUM 9.9 mg/dL (8.5-10.1); CHLORIDE 107 mmol/L (98-107); CREATININE 0.78 mg/dL (0.55-1.02)
[2019-05-06 15:51] LABS: ALKALINE PHOSPHATASE 110 U/L (45-117); BILIRUBIN,TOTAL 0.7 mg/dL (0.2-1.0)
--- NOTE | 2019-05-06 15:57 | NUR ---
UA COLLECTED VIA STRAIGHT CATH AND TAKEN TO LAB.
[2019-05-06] MEDS ORDERED: SODIUM CHLORIDE 0.9% 1,000ML IVBOLUS ONE (16:00)
[2019-05-06 16:05] LABS: BASOPHILS # (AUTO) 0.09 x10^3/uL (0-0.1); BASOPHILS % (AUTO) 1 % (0-1); EOSINOPHILS # (AUTO) 0.23 x10^3/uL (0-0.4); EOSINOPHILS % (AUTO) 2 % (1-7); LYMPHOCYTES # (AUTO) 1.42 x10^3/uL (1-3.4); LYMPHOCYTES % (AUTO) 10 % (22-44); MD SCAN; MONOCYTES # (AUTO) 0.85 x10^3/uL (0.2-0.8); MONOCYTES % (AUTO) 6 % (2-9); NEUTROPHILS # (AUTO) 11.46 x10^3/uL (1.8-6.8); NEUTROPHILS % (AUTO) 82 % (42-75)
[2019-05-06 16:09] LABS: MICROSCOPIC AUTO
[2019-05-06 16:12] LABS: CULTURE INDICATED? YES
--- NOTE | 2019-05-06 16:26 | NUR ---
PT STARTED YELLING SHE CAN'T DO THIS IN CT- WANTING OFF THE TABLE. AT THIS TIME PT REFUSING EXAM. BEING BROUGHT BACK TO ROOM.
--- NOTE | 2019-05-06 16:57 | NUR ---
PT AMBULATED TO RESTROOM AND BACK TO BED WITH SBA. NADN. FAMILY AT BEDSIDE.
--- NOTE | 2019-05-06 16:58 | NUR ---
PT UNABLE TO PROVIDE STOOL SAMPLE.
[2019-05-06] MEDS ORDERED: LORazepam 2 MG/ML, 1ML IVPush ONE (17:00)
[2019-05-06] MEDS ORDERED: LORazepam 2 MG/ML, 1ML ONE (17:14)
--- NOTE | 2019-05-06 17:18 | NUR ---
MEDS ADMIN PER JUL. PT STATES SHE HAS A HYPERSENSITIVITY TO BENZODIAZEPINES AND NOT AN ALLERGIC REACTION. PT HAS NOT TAKEN ANY BENZO IN QUITE A WHILE. PT AND FAMILY OK TO TAKE ATIVAN TO COMPLETE CT.
--- NOTE | 2019-05-06 17:29 | NUR ---
PT IS RELAXED AFTER MEDS. CT NOTIFIED PT READY FOR CT.
--- NOTE | 2019-05-06 18:15 | NUR ---
ALL RESULTS ARE BACK AT THIS TIME. CHART UP FOR RECHECK.
--- NOTE | 2019-05-06 19:12 | NUR ---
PT ASSISTED WITHOUT REMOVING HER NIGHT GOWN PER REQUEST. PT STATES SHE NEEDS HELP BUT UNABLE TO VERBALIZE HELP WITH WHAT.
--- NOTE | 2019-05-06 19:42 | NUR ---
REPORT GIVEN TO JONN FERNANDO
[2019-05-06] MEDS ORDERED: ACETAMINOPHEN 325 MG TABLET PO PRN (22:30)
[2019-05-06] MEDS ORDERED: POTASSIUM CHLORIDE 40 MEQ in SODIUM CHLORIDE 0.9% 500 ML IV ONE (22:30)
[2019-05-06] MEDS ORDERED: D5%-0.9% NACL 1,000 ML IV SCH (22:30)
[2019-05-06] MEDS ORDERED: ENOXAPARIN 40 MG/0.4 ML SQ SCH (22:30)
[2019-05-06] MEDS ORDERED: OXYCODONE HCL PO PRN (22:30)
[2019-05-06] MEDS ORDERED: LORazepam 1MG TABLET PO PRN (22:30)
[2019-05-06] MEDS: TEMPLATE NON-FORMULARY MED. (Pentosan Polysulfate Sodium (Elmiron) 100 MG) HOMEMEDPO SCH (22:30)
[2019-05-06] MEDS: BUDESONIDE 0.5 MG/2 ML INHA NPPB SCH (22:30)
[2019-05-06] MEDS ORDERED: POLYETHYLENE GLYCOL 17 GM PACKET PO PRN (22:30)
[2019-05-06] MEDS ORDERED: ONDANSETRON ODT 4 MG PO PRN (22:30)
[2019-05-06] MEDS ORDERED: BISACODYL 10 MG SUPP PR PRN (22:30)
[2019-05-06] MEDS ORDERED: hydrALAzine 20 MG/ML, 1ML IVPush PRN (22:30)
[2019-05-06] MEDS: APIXABAN 2.5 MG TABLET PO SCH (22:30)
[2019-05-06] MEDS ORDERED: DOCUSATE 100 MG CAPSULE PO PRN (22:30)
[2019-05-06] MEDS: TEMPLATE NON-FORMULARY MED. (Linaclotide** (Linzess**) 145 MCG) HOMEMEDPO SCH (22:30)
[2019-05-06] MEDS: ONDANSETRON 2MG/ML, 2ML IVPush PRN (23:04)
[2019-05-06] MEDS ORDERED: LOVENOX/APIXABAN MC SCH (23:45)
[2019-05-06] MEDS: LITHIUM CARBONATE 300 MG TABLET.ER PO SCH (23:48)
[2019-05-06] MEDS: MELATONIN 3 MG TABLET PO SCH (23:49)
[2019-05-06] MEDS: FAMOTIDINE 20 MG TABLET PO SCH (23:49)
[2019-05-06] MEDS: BUSPIRONE 5 MG TABLET PO SCH (23:50)
[2019-05-06] MEDS: METOCLOPRAMIDE 5 MG/ML, 2ML IVPush PRN (23:59)
[2019-05-07] MEDS: LIOTHYRONINE 5 MCG TABLET PO SCH ×3 (01:13→20:07)
[2019-05-07] MEDS: OXYcodone IR 5MG TABLET PO PRN ×2 (01:16→05:49)
[2019-05-07] MEDS: GUAIFENESIN ER 600 MG TABLET PO SCH ×3 (01:19→20:14)
[2019-05-07] MEDS: MONTELUKAST 10 MG TABLET PO SCH ×2 (01:28→20:21)
[2019-05-07] MEDS: GABAPENTIN 400 MG CAPSULE PO SCH ×4 (01:28→20:20)
[2019-05-07 01:39] VITALS: BP 167/108
[2019-05-07 01:53] LABS: AMPHETAMINE SCREEN, URINE Negative (Negative); BARBITURATE SCREEN, URINE Negative (Negative); BENZODIAZEPINE SCREEN, URINE Positive (Negative); CANNABINOID SCREEN, URINE Positive (Negative); COCAINE SCREEN, URINE Negative (Negative); METHADONE SCREEN, URINE Negative (Negative); OPIATE SCREEN, URINE Negative (Negative)
[2019-05-07 04:31] VITALS: BP 126/85
[2019-05-07] MEDS: ONDANSETRON 2MG/ML, 2ML IVPush PRN ×3 (05:49→20:03)
[2019-05-07] MEDS ORDERED: OXYcodone IR 5MG TABLET PO PRN (07:30)
[2019-05-07 07:36] VITALS: BP 135/85
[2019-05-07 07:50] LABS: ALANINE AMINOTRANSFERASE 60 U/L (12-78); ALBUMIN 3.3 g/dL (3.4-5.0); ANION GAP 6 mmol/L (5-15); CALCIUM 8.8 mg/dL (8.5-10.1); CHLORIDE 113 mmol/L (98-107); CREATININE 0.65 mg/dL (0.55-1.02)
[2019-05-07 08:00] LABS: ALKALINE PHOSPHATASE 91 U/L (45-117); BILIRUBIN,TOTAL 0.8 mg/dL (0.2-1.0); TOTAL PROTEIN 6.6 g/dL (6.4-8.2)
[2019-05-07] MEDS ORDERED: ACETAMINOPHEN 325 MG TABLET PO PRN (08:00)
[2019-05-07 08:27] LABS: BASOPHILS % (AUTO) 1 % (0-1); EOSINOPHILS % (AUTO) 2 % (1-7); LYMPHOCYTES # (AUTO) 1.97 x10^3/uL (1-3.4); LYMPHOCYTES % (AUTO) 19 % (22-44); MD SCAN; MEAN CORPUSCULAR HEMOGLOBIN 28.7 pg (27.0-34.8); MEAN CORPUSCULAR HGB CONC 32.3 g/dL (32.4-35.8); MEAN CORPUSCULAR VOLUME 88.9 fL (80-100); MONOCYTES # (AUTO) 0.99 x10^3/uL (0.2-0.8); MONOCYTES % (AUTO) 10 % (2-9); NEUTROPHILS # (AUTO) 6.98 x10^3/uL (1.8-6.8); NEUTROPHILS % (AUTO) 68 % (42-75); PLATELET COUNT 340 x10^3/uL (130-400); RED BLOOD COUNT 4.67 x10^6/uL (3.82-5.3); RED CELL DISTRIBUTION WIDTH 15.5 % (9.6-15.2)
[2019-05-07] MEDS: TEMPLATE NON-FORMULARY MED. (Pentosan Polysulfate Sodium (Elmiron) 100 MG) HOMEMEDPO SCH ×3 (09:00→20:22)
[2019-05-07] MEDS: TEMPLATE NON-FORMULARY MED. (Linaclotide** (Linzess**) 145 MCG) HOMEMEDPO SCH ×2 (09:00→20:23)
[2019-05-07] MEDS: BUDESONIDE 0.5 MG/2 ML INHA NPPB SCH ×2 (09:00→23:10)
[2019-05-07] MEDS: BUSPIRONE 5 MG TABLET PO SCH ×3 (09:00→21:00)
[2019-05-07] MEDS ORDERED: BUSPIRONE 10 MG TABLET ONE (09:37)
[2019-05-07] MEDS: SODIUM CHLORIDE 0.9% 1,000 ML IV SCH (10:02)
[2019-05-07] MEDS: ESCITALOPRAM 10MG TABLET PO SCH (10:03)
[2019-05-07] MEDS: METOCLOPRAMIDE 5 MG/ML, 2ML IVPush PRN (10:03)
[2019-05-07] MEDS: LACTOBACILLUS CHEW TABLET PO SCH ×3 (10:03→20:14)
[2019-05-07] MEDS: LEVOTHYROXINE 100 MCG TABLET PO SCH (10:04)
[2019-05-07] MEDS: APIXABAN 2.5 MG TABLET PO SCH ×2 (10:05→20:13)
[2019-05-07] MEDS: VALACYCLOVIR 500MG TABLET PO SCH (10:05)
[2019-05-07] MEDS: CETIRIZINE 10 MG TABLET PO SCH (10:05)
[2019-05-07] MEDS: CHOLECALCIFEROL 5,000u TAB PO SCH (10:05)
[2019-05-07] MEDS: LITHIUM CARBONATE 300 MG CAPSULE PO SCH (10:16)
[2019-05-07 13:50] VITALS: BP 149/92
[2019-05-07 18:47] VITALS: BP 124/76
[2019-05-07] MEDS: MELATONIN 3 MG TABLET PO SCH (20:07)
[2019-05-07] MEDS: LITHIUM CARBONATE 300 MG TABLET.ER PO SCH (20:12)
[2019-05-07] MEDS: FAMOTIDINE 20 MG TABLET PO SCH (20:14)
[2019-05-08] MEDS: SODIUM CHLORIDE 0.9% 1,000 ML IV SCH (05:51)
[2019-05-08 05:52] LABS: BASOPHILS # (AUTO) 0.12 x10^3/uL (0-0.1); BASOPHILS % (AUTO) 1 % (0-1); EOSINOPHILS % (AUTO) 6 % (1-7); LYMPHOCYTES # (AUTO) 2.17 x10^3/uL (1-3.4); LYMPHOCYTES % (AUTO) 24 % (22-44); MD NO; MEAN CORPUSCULAR HEMOGLOBIN 28.9 pg (27.0-34.8); MEAN CORPUSCULAR HGB CONC 31.5 g/dL (32.4-35.8); MEAN CORPUSCULAR VOLUME 91.6 fL (80-100); MONOCYTES # (AUTO) 0.75 x10^3/uL (0.2-0.8); MONOCYTES % (AUTO) 8 % (2-9); NEUTROPHILS # (AUTO) 5.43 x10^3/uL (1.8-6.8); NEUTROPHILS % (AUTO) 61 % (42-75); PLATELET COUNT 305 x10^3/uL (130-400); RED BLOOD COUNT 4.63 x10^6/uL (3.82-5.3); RED CELL DISTRIBUTION WIDTH 16.1 % (9.6-15.2)
[2019-05-08 06:07] LABS: ANION GAP 4 mmol/L (5-15); CALCIUM 8.9 mg/dL (8.5-10.1); CHLORIDE 115 mmol/L (98-107)
[2019-05-08 06:08] VITALS: BP 148/83
[2019-05-08 06:08] LABS: CREATININE 0.81 mg/dL (0.55-1.02)
[2019-05-08] MEDS ORDERED: SODIUM CHLORIDE 0.9% 1,000 ML IV SCH (07:30)
[2019-05-08] MEDS: ONDANSETRON 2MG/ML, 2ML IVPush PRN (08:33)
[2019-05-08] MEDS: LEVOTHYROXINE 100 MCG TABLET PO SCH (08:34)
[2019-05-08] MEDS: VALACYCLOVIR 500MG TABLET PO SCH (08:34)
[2019-05-08] MEDS: GUAIFENESIN ER 600 MG TABLET PO SCH (08:34)
[2019-05-08] MEDS: LITHIUM CARBONATE 300 MG CAPSULE PO SCH (08:34)
[2019-05-08] MEDS: LACTOBACILLUS CHEW TABLET PO SCH (08:34)
[2019-05-08] MEDS: CETIRIZINE 10 MG TABLET PO SCH (08:34)
[2019-05-08] MEDS: APIXABAN 2.5 MG TABLET PO SCH (08:34)
[2019-05-08] MEDS: CHOLECALCIFEROL 5,000u TAB PO SCH (08:34)
[2019-05-08] MEDS: GABAPENTIN 400 MG CAPSULE PO SCH ×2 (08:35→12:48)
[2019-05-08] MEDS: ESCITALOPRAM 10MG TABLET PO SCH (08:35)
[2019-05-08] MEDS: LIOTHYRONINE 5 MCG TABLET PO SCH (08:35)
[2019-05-08] MEDS: TEMPLATE NON-FORMULARY MED. (Pentosan Polysulfate Sodium (Elmiron) 100 MG) HOMEMEDPO SCH (08:35)
[2019-05-08] MEDS: TEMPLATE NON-FORMULARY MED. (Linaclotide** (Linzess**) 145 MCG) HOMEMEDPO SCH (08:35)
[2019-05-08] MEDS: BUSPIRONE 5 MG TABLET PO SCH (08:35)
[2019-05-08] MEDS: BUDESONIDE 0.5 MG/2 ML INHA NPPB SCH (09:00)
[2019-05-08 10:25] LABS: CLOSTRIDIUM DIFFICILE ANTIGEN NEGATIVE; CLOSTRIDIUM DIFFICILE TOXIN NEGATIVE (Negative)
[2019-05-08] MEDS ORDERED: ACID1TAB7 PO (11:23)
[2019-05-08] MEDS ORDERED: ELETRIPTAN 40MG TABLET PO PRN (11:30)
[2019-05-08 12:45] VITALS: BP 124/84
== END 2019-05-08 15:05 | disposition home health service (06) | DRG 391 ==
LOC: ED 16:13 → EDIP 19:19 → 3N 20:38 → DCLOUNGE 05-08 14:32
PROVIDERS: ADMIT Internal Medicine; ATTEND Internal Medicine
DX: K29.70 Gastritis, unspecified, without bleeding (principal); G93.41 Metabolic encephalopathy; F13.20 Sedative, hypnotic or anxiolytic dependence, uncomplicated; D68.69 Other thrombophilia; N39.0 Urinary tract infection, site not specified; F12.188 Cannabis abuse with other cannabis-induced disorder; F31.9 Bipolar disorder, unspecified; Z88.8 Allergy status to other drugs, medicaments and biological substances; Z91.018 Allergy to other foods; Z91.013 Allergy to seafood; E03.9 Hypothyroidism, unspecified; E78.5 Hyperlipidemia, unspecified; E87.6 Hypokalemia; F12.10 Cannabis abuse, uncomplicated; F43.10 Post-traumatic stress disorder, unspecified; X58.XXXA Exposure to other specified factors, initial encounter; Y93.89 Activity, other specified; Y92.89 Other specified places as the place of occurrence of the external cause; Y99.8 Other external cause status; G47.00 Insomnia, unspecified; I10 Essential (primary) hypertension; J45.909 Unspecified asthma, uncomplicated; Z86.718 Personal history of other venous thrombosis and embolism
CPT/HCPCS: 36415; 71045; 74177; 80048; 80053; 80178; 80307; 81001; 82140; 83690; 83735; 84439; 84443; 85025; 87086; 87324; 89055; 94640; 96361; 96374; 96375; G0378; J2405; J3480; J7042; J7626; J2060; J2765; J7030; J7040

== ENCOUNTER 2019-05-14 14:11 | Emergency (ER) | payer MEDICARE, OTHER ==
[~2019-05-14] VITALS: Ht 177.8 cm; Wt 84.2 kg
[~2019-05-14 14:11] MED LIST changes: +ACID1TAB7 PO
--- NOTE | 2019-05-14 15:14 | NUR ---
rn lpn lvn: Patient to room from lobby at this time.
[2019-05-14 15:18] VITALS: BP 132/80
--- NOTE | 2019-05-14 15:21 | NUR ---
PAINFUL URINATION/BLADDER PAIN/BILAT FLANK PAIN. ADMITTED 1 WEEK AGO FOR "DEHYDRATION AND UTI" PER TRIAGE NOTE PT AMBULATED TO WITH STABLE GAIT OFFERED URINE COLLECTION PT UNDERSTOOD UA CUP AT BED SIDE WHEN PT IS ABLE VSS STABLE FAMILY AT BED SIDE
[2019-05-14] MEDS ORDERED: LORazepam 1MG TABLET PO ONE (15:30)
[2019-05-14 16:14] LABS: MEAN CORPUSCULAR HEMOGLOBIN 28.9 pg (27.0-34.8); MEAN CORPUSCULAR HGB CONC 31.9 g/dL (32.4-35.8); MEAN CORPUSCULAR VOLUME 90.7 fL (80-100); MEAN PLATELET VOLUME 8.6 fL (7.4-10.4); PLATELET COUNT 360 x10^3/uL (130-400); RED BLOOD COUNT 4.68 x10^6/uL (3.82-5.3); RED CELL DISTRIBUTION WIDTH 15.9 % (9.6-15.2)
[2019-05-14 16:24] LABS: ALANINE AMINOTRANSFERASE 40 U/L (12-78); ALBUMIN 3.2 g/dL (3.4-5.0); ANION GAP 3 mmol/L (5-15); CALCIUM 9.2 mg/dL (8.5-10.1); CHLORIDE 108 mmol/L (98-107); CREATININE 0.86 mg/dL (0.55-1.02)
[2019-05-14 16:27] LABS: ALKALINE PHOSPHATASE 97 U/L (45-117); BILIRUBIN,TOTAL 0.4 mg/dL (0.2-1.0); TOTAL PROTEIN 6.7 g/dL (6.4-8.2)
[2019-05-14 16:36] LABS: BASOPHILS # (AUTO) 0.08 x10^3/uL (0-0.1); BASOPHILS % (AUTO) 1 % (0-1); EOSINOPHILS # (AUTO) 0.63 x10^3/uL (0-0.4); EOSINOPHILS % (AUTO) 5 % (1-7); LYMPHOCYTES # (AUTO) 2.13 x10^3/uL (1-3.4); LYMPHOCYTES % (AUTO) 17 % (22-44); MONOCYTES # (AUTO) 1.05 x10^3/uL (0.2-0.8); MONOCYTES % (AUTO) 9 % (2-9); NEUTROPHILS % (AUTO) 68 % (42-75)
[2019-05-14 16:37] LABS: MD SCAN
[2019-05-14 16:48] LABS: MICROSCOPIC INDICATED
[2019-05-14 16:59] LABS: CULTURE INDICATED? YES
== END 2019-05-14 17:44 | disposition home or self-care (01) ==
LOC: ED 15:40
DX: N30.00 Acute cystitis without hematuria (principal); R11.0 Nausea; I10 Essential (primary) hypertension; J45.909 Unspecified asthma, uncomplicated; F12.10 Cannabis abuse, uncomplicated; Z90.49 Acquired absence of other specified parts of digestive tract
CPT/HCPCS: 36415; 80053; 81001; 85025; 87086; 99283

== ENCOUNTER 2019-05-17 11:09 | Emergency (ER) | payer MEDICARE, OTHER ==
[~2019-05-17] VITALS: Ht 177.8 cm; Wt 82.0 kg
[2019-05-17 11:11] VITALS: BP 150/86
--- NOTE | 2019-05-17 11:35 | NUR ---
PT STATES SHE HAS BEEN ON ANTIBIOTICS FOR UTI BUT HAS BEEN VOMITING AND UNABLE TO KEEP THEM DOWN. C/O DYSURIA. PT STATES SHE FEELS CONFUSED, ALTHOUGH A&OX4. TO BATHROOM TO GIVE SAMPLE.
[2019-05-17] MEDS ORDERED: ONDANSETRON ODT 4 MG PO ONE (12:00)
[2019-05-17 12:06] LABS: BASOPHILS # (AUTO) 0.07 x10^3/uL (0-0.1); BASOPHILS % (AUTO) 1 % (0-1); EOSINOPHILS # (AUTO) 0.44 x10^3/uL (0-0.4); EOSINOPHILS % (AUTO) 4 % (1-7); LYMPHOCYTES # (AUTO) 1.87 x10^3/uL (1-3.4); LYMPHOCYTES % (AUTO) 15 % (22-44); MD NO; MEAN CORPUSCULAR HEMOGLOBIN 28.5 pg (27.0-34.8); MEAN CORPUSCULAR HGB CONC 32.1 g/dL (32.4-35.8); MEAN CORPUSCULAR VOLUME 88.8 fL (80-100); MEAN PLATELET VOLUME 7.7 fL (7.4-10.4); MONOCYTES # (AUTO) 0.73 x10^3/uL (0.2-0.8); MONOCYTES % (AUTO) 6 % (2-9); NEUTROPHILS # (AUTO) 9.09 x10^3/uL (1.8-6.8); NEUTROPHILS % (AUTO) 75 % (42-75); PLATELET COUNT 465 x10^3/uL (130-400); RED BLOOD COUNT 5.38 x10^6/uL (3.82-5.3); RED CELL DISTRIBUTION WIDTH 16.2 % (9.6-15.2)
[2019-05-17] MEDS ORDERED: ONDANSETRON ODT 4 MG ONE (12:09)
[2019-05-17 12:11] LABS: MICROSCOPIC INDICATED
[2019-05-17 12:15] LABS: ALANINE AMINOTRANSFERASE 44 U/L (12-78); ALBUMIN 3.7 g/dL (3.4-5.0); ANION GAP 7 mmol/L (5-15); CALCIUM 9.7 mg/dL (8.5-10.1); CHLORIDE 109 mmol/L (98-107); CREATININE 0.91 mg/dL (0.55-1.02)
--- NOTE | 2019-05-17 12:17 | NUR ---
PT DECLINING HYDROXYZINE STATING SHE HAD A REACTION TO IT A LONG TIME AGO
[2019-05-17 12:18] LABS: ALKALINE PHOSPHATASE 128 U/L (45-117); BILIRUBIN,TOTAL 0.5 mg/dL (0.2-1.0)
[2019-05-17 12:27] LABS: CULTURE INDICATED? YES
[2019-05-17 12:42] LABS: INTERNATIONAL NORMALIZED RATIO 0.91 (0.93-1.1); PROTHROMBIN TIME 9.6 Seconds (9.6-11.5)
[2019-05-17] MEDS ORDERED: LORazepam 1MG TABLET PO ONE (13:30)
[2019-05-17] MEDS ORDERED: LORazepam 1MG TABLET ONE (13:40)
--- NOTE | 2019-05-17 14:03 | NUR ---
MEDICATED PER MAR FOR ANXIETY. PT SITTING IN CHAIR WHILE AWAITING LABS.
== END 2019-05-17 14:31 | disposition home or self-care (01) ==
LOC: ED 14:25
DX: R10.84 Generalized abdominal pain (principal); R11.2 Nausea with vomiting, unspecified; R30.0 Dysuria; R41.0 Disorientation, unspecified; I10 Essential (primary) hypertension; J45.909 Unspecified asthma, uncomplicated; Z90.49 Acquired absence of other specified parts of digestive tract; Z88.8 Allergy status to other drugs, medicaments and biological substances
CPT/HCPCS: 36415; 71045; 80053; 81001; 83605; 84145; 85025; 85610; 87086; 99284; Q0162

== ENCOUNTER 2019-06-28 10:30 | Emergency (ER) | payer MEDICARE, OTHER ==
[~2019-06-28] VITALS: Ht 177.8 cm; Wt 84.4 kg
--- NOTE | 2019-06-28 11:04 | NUR ---
PT CAME FROM [facility]. WAS TREATED FOR UTI AND PNEUMONIA. CAME TP ED TODAY CO OF ANKLE SWELLING AND PAIN, ABD PAIN, URINARY PAIN, AND VOMITTING. PT STATES SHE IS ON ELIQUIS
--- NOTE | 2019-06-28 11:18 | NUR ---
requested records from [facility]
[2019-06-28] MEDS ORDERED: DIPHENHYDRAMINE 50 MG/ML, 1ML ONE (11:27)
[2019-06-28] MEDS ORDERED: SODIUM CHLORIDE FLUSH 10ML SYR IVF ONE (11:30)
[2019-06-28] MEDS ORDERED: DIPHENHYDRAMINE 50 MG/ML, 1ML IVPush ONE (11:30)
[2019-06-28] MEDS ORDERED: LORazepam 2 MG/ML, 1ML ONE (11:34)
[2019-06-28 11:41] LABS: BASOPHILS # (AUTO) 0.08 x10^3/uL (0-0.1); BASOPHILS % (AUTO) 1 % (0-1); EOSINOPHILS # (AUTO) 0.09 x10^3/uL (0-0.4); EOSINOPHILS % (AUTO) 1 % (1-7); LYMPHOCYTES % (AUTO) 11 % (22-44); MD NO; MEAN CORPUSCULAR HEMOGLOBIN 27.9 pg (27.0-34.8); MEAN CORPUSCULAR HGB CONC 31.9 g/dL (32.4-35.8); MEAN CORPUSCULAR VOLUME 87.4 fL (80-100); MEAN PLATELET VOLUME 7.5 fL (7.4-10.4); MONOCYTES # (AUTO) 0.67 x10^3/uL (0.2-0.8); MONOCYTES % (AUTO) 5 % (2-9); NEUTROPHILS # (AUTO) 10.76 x10^3/uL (1.8-6.8); NEUTROPHILS % (AUTO) 83 % (42-75); PLATELET COUNT 403 x10^3/uL (130-400); RED BLOOD COUNT 4.93 x10^6/uL (3.82-5.3); RED CELL DISTRIBUTION WIDTH 15.7 % (9.6-15.2)
[2019-06-28 11:49] LABS: ALANINE AMINOTRANSFERASE 22 U/L (12-78); ALBUMIN 3.7 g/dL (3.4-5.0); ANION GAP 8 mmol/L (5-15); CALCIUM 8.7 mg/dL (8.5-10.1); CHLORIDE 108 mmol/L (98-107); CREATININE 0.78 mg/dL (0.55-1.02)
[2019-06-28 11:51] LABS: ALKALINE PHOSPHATASE 111 U/L (45-117); BILIRUBIN,TOTAL 1.3 mg/dL (0.2-1.0); TOTAL PROTEIN 7.3 g/dL (6.4-8.2)
[2019-06-28] MEDS ORDERED: LORazepam 2 MG/ML, 1ML IVPush ONE (12:00)
--- NOTE | 2019-06-28 12:21 | NUR ---
US IN WITH PT
--- NOTE | 2019-06-28 12:22 | NUR ---
2nd request to [facility] for records
[2019-06-28 12:45] VITALS: BP 168/94
--- NOTE | 2019-06-28 12:46 | NUR ---
PT IS IN HOSPITAL BED. ROCKING BACK N FORTH. FRIEND IS BEDSIDE.
--- NOTE | 2019-06-28 13:04 | NUR ---
received records from [facility]
== END 2019-06-28 14:03 | disposition home or self-care (01) ==
LOC: ED 13:08
DX: I82.512 Chronic embolism and thrombosis of left femoral vein (principal); I82.532 Chronic embolism and thrombosis of left popliteal vein; E86.0 Dehydration; R11.2 Nausea with vomiting, unspecified; I10 Essential (primary) hypertension; J45.909 Unspecified asthma, uncomplicated; Z90.49 Acquired absence of other specified parts of digestive tract
CPT/HCPCS: 36415; 80053; 85025; 93005; 93970; 96374; 96375; 99284; J1200; J2060

== ENCOUNTER 2019-06-29 07:32 | Emergency (ER) | payer MEDICARE ==
[~2019-06-29] VITALS: Ht 177.8 cm; Wt 83.0 kg
--- NOTE | 2019-06-29 08:34 | NUR ---
THIS IS A 64 YO F W/ C/O BLADDER PAIN, BILAT FLANK PAIN FREQUENCY AND BILAT LOWER LEG SWEELLING. PT STATES SHE WAS DC [facility] YESTERDAY FOR PNA AND UTI. PT DOES NOT KNOW IF SHE WAS GIVEN ABX. PT STATES SHE WAS "KICKED OUT" OF HOSPITAL. PT IS TEARFUL SITTING AT THE BEDSIDE ROCKING. SHE STATES THAT "SOMETHING IS JUST NOT RIGHT". PT WAS ALSO SEEN AT [facility] ON WEDNESDAY. PT CONCERNED ABOUT WHO SHE WILL BE SEEING HERE. VS STABLE. URINE COLLECTED. CALL LIGHT IN REACH. DENIES FURTHER NEEDS AT THIS TIME.
--- NOTE | 2019-06-29 09:09 | NUR ---
PT AMBULATED TO THE BR W/ A STEADY GAIT.
--- NOTE | 2019-06-29 09:10 | NUR ---
TASK RN: PT AMBULATORY WITH STEADY GAIT BACK TO ROOM. PT STATES "I HAVE A UTI AND PNA. I NEVER GOT MEDS WHEN I LEFT. I WAS AT [facility] ADMITTED. I LEFT THE NEXT DAY TO CHECK ON MY DOGS." BEDSIDE.
--- NOTE | 2019-06-29 09:22 | NUR ---
URINE COLLECTED AND SENT TO LAB.
[2019-06-29] MEDS ORDERED: LORazepam 1MG TABLET PO ONE (09:30)
[2019-06-29] MEDS ORDERED: LORazepam 1MG TABLET ONE (09:33)
--- NOTE | 2019-06-29 09:35 | NUR ---
PT MEDICATED PER EMAR.
[2019-06-29 09:40] LABS: MICROSCOPIC AUTO
[2019-06-29 09:45] LABS: BASOPHILS # (AUTO) 0.03 x10^3/uL (0-0.1); BASOPHILS % (AUTO) 0 % (0-1); EOSINOPHILS # (AUTO) 0.11 x10^3/uL (0-0.4); EOSINOPHILS % (AUTO) 1 % (1-7); LYMPHOCYTES # (AUTO) 1.45 x10^3/uL (1-3.4); LYMPHOCYTES % (AUTO) 10 % (22-44); MD NO; MEAN CORPUSCULAR HEMOGLOBIN 28.2 pg (27.0-34.8); MEAN CORPUSCULAR HGB CONC 32.6 g/dL (32.4-35.8); MEAN CORPUSCULAR VOLUME 86.5 fL (80-100); MEAN PLATELET VOLUME 7.7 fL (7.4-10.4); MONOCYTES # (AUTO) 0.92 x10^3/uL (0.2-0.8); MONOCYTES % (AUTO) 6 % (2-9); NEUTROPHILS # (AUTO) 12.74 x10^3/uL (1.8-6.8); NEUTROPHILS % (AUTO) 84 % (42-75); PLATELET COUNT 384 x10^3/uL (130-400); RED BLOOD COUNT 5.15 x10^6/uL (3.82-5.3); RED CELL DISTRIBUTION WIDTH 15.4 % (9.6-15.2)
[2019-06-29 09:45] LABS: CULTURE INDICATED? YES
[2019-06-29 09:55] LABS: ALBUMIN 3.8 g/dL (3.4-5.0); ANION GAP 10 mmol/L (5-15); CALCIUM 9.2 mg/dL (8.5-10.1); CHLORIDE 109 mmol/L (98-107); CREATININE 0.76 mg/dL (0.55-1.02)
--- NOTE | 2019-06-29 09:58 | NUR ---
PT RESTING ON GURNEY AWAITING US. C/O RT FLANK PAIN. PROVIDER UPDATED. NO NEW ORDERS RECEIVED.
--- NOTE | 2019-06-29 10:15 | NUR ---
XRAY IN ROOM.
--- NOTE | 2019-06-29 10:32 | NUR ---
US IN ROOM.
--- NOTE | 2019-06-29 11:22 | NUR ---
PT STATES IF WE DC HER SHE IS GETTING "INCREASINGLY SUICIDAL". PT STATES "I WOULD NEVER ACTUALLY KILL MYSELF".
--- NOTE | 2019-06-29 11:29 | NUR ---
ALL TESTS RESULTED. PT IS UP FOR RECHECK AT THIS TIME. PT C/O 02/[address] GONSALEZ NOTIFIED, NO NEW ORDERS RECEIVED.
[2019-06-29 12:06] VITALS: BP 145/122
--- NOTE | 2019-06-29 12:33 | NUR ---
PT STATES "I HAVEN'T SEEN A PSYCHIATRIST AND I SAID I WANTED TO KILL MYSELF, EVEN THOUGH I DONT REALLY WANT TO, YA KNOW". PT STATES IF WE DC SHE IS BECOMING MORE DESPARATE AND WILL GO ON A VOLUNTARY HOLD. UPDATED. WILL CONTINUE POC TO DC W/ RESOURCES FOR INPATIENT FACILITIES.
--- NOTE | 2019-06-29 12:41 | NUR ---
PT STATES THAT SHE HAS AN APT TOMORROW W/ A PSYCHIATRIST. TO DRIVE HER TO APT. DC W/ RESOURCES FOR PSYCHIATRIC FACILITIES AND OFFERED [employer]AXI VOUCHER. PT DENIED. AMBULATED W/ A STEADY GAIT.
== END 2019-06-29 12:44 | disposition home or self-care (01) ==
LOC: ED 12:19
DX: R60.0 Localized edema (principal); F41.1 Generalized anxiety disorder; I10 Essential (primary) hypertension; J45.909 Unspecified asthma, uncomplicated; Z90.49 Acquired absence of other specified parts of digestive tract
CPT/HCPCS: 36415; 71045; 80048; 81001; 82040; 85025; 87086; 99284